=== PATIENT | female | born 1985 | race Caucasian/White ===

== ENCOUNTER 2021-07-11 14:18 | Inpatient (IN) ==
[2021-07-11] MEDS ORDERED: OXYTOCIN 30 UNITS/500 ML BAG IV PRN (14:23)
[2021-07-11] MEDS ORDERED: LACTATED RINGER'S 1,000 ML IV PRN (14:23)
[2021-07-11 14:41] LABS: Hematocrit (blood only) 30.2 % (37-47); Hemoglobin 9.6 g/dL (12.0-16.0); Mean Corpuscular Hemoglobin 28.6 pg (25-34); Mean Corpuscular Hgb Conc 31.8 g/dL (32-36); Mean Corpuscular Volume 89.9 fL (80-100); Mean Platelet Volume 13.4 fL (7.4-10.4); Nucleated RBC # (auto) 0.04 K/uL (0-0); Nucleated RBC % (auto) 0.4 %; Platelet Count 215 K/uL (130-400); RDW Coefficient of Variation 14.4 % (11.5-14.5); RDW Standard Deviation 47.3 fL (36.4-46.3); Red Blood Count 3.36 M/uL (4.2-5.4); White Blood Count 10.05 K/uL (4.8-10.8)
[2021-07-11] MEDS ORDERED: LABETALOL HCL IV 5 MG/ML 20ML IV STA ×3 (14:55→15:44)
[2021-07-11 14:59] LABS: Alanine Aminotransferase 22 (12-78); Albumin Globulin Ratio 0.6 (0.9-2); Albumin Level 2.8 gm/dl (3.4-5.0); Aspartate Aminotransferase 20 U/L (15-37); BUN Creatinine Ratio 18.2 (10-20); Bilirubin,Total 0.3 mg/dl (0.2-1); Blood Urea Nitrogen 9 mg/dl (7-18); Carbon Dioxide 21 mmol/L (21-32); Chloride 105 mmol/L (98-107); Est GFR (African American) 145.4 ml/min; Est GFR (Non-African American) 125.5 ml/min; Globulin 4.6 gm/dl (2.5-4.0); Glucose 83 mg/dl (70-99); Potassium 3.2 mmol/L (3.5-5.1); Sodium 135 mmol/L (136-145); Total Protein 7.4 gm/dl (6.4-8.2)
[2021-07-11 15:00] LABS: Alkaline Phosphatase 181 U/L (45-117)
[2021-07-11] MEDS ORDERED: MAG SULFATE 4GM BOLUS FROM BAG IV ONE (15:03)
--- NOTE | 2021-07-11 15:09 | History & Physical Report ---
Date of Service July 11, 2021 Assessment & Plan (1) Preeclampsia: (2) Gestational diabetes: (3) Previous delivery affecting , antepartum: Plan: Patient demonstrating severe level blood pressures at this point. Has had two doses of steroids. fetus category one. Plan to proceed with delivery. Treat blood pressures with labetalol and start mag for seizure prophylaxis. Explained the situation to the patient and she expresses understanding. Will proceed. She desires a tubal ligation and had this planned with her repeat c/s. Labs continue to be normal but with these pressures the risk of remaining are outweighed by the risks of prematurity. The patient expresses understanding. Admission and Anticipated Discharge Date Admission Date: July 11, 2021 History of Present Illness Chief Complaint: elevated blood pressures Primary Care Provider: Dana Lomax Patient is a 36yof , c/s x2, who presents to labor and delivery from the office for elevated blood pressures. Has been in the office and labor and delivery every day this week because of elevated blood pressures. She was in the office again today and bps 150s/100s. I first saw the patient on Sat wtih elevated pressures and morrow. Bps were elevated but not in the severe range. Labs have always been normal. She has been seen almost daily and pressures, which she notes are 160s/100s at home have always not been severe here. She has gotten two doses of steroids. Had a 24 hour urine less than 300 when had p/cr of 0.3 on Sat. She had a new +2 dip in the office today. She notes continued morrow that has never gone away. At times spikes a bit worse. Notes blurry vision since sat. Currently denies ruq pain, n/v, increased swelling. Her pressures here are significantly elevated up to 200s/100s. She dipped neg here. and Delivery Plans Covid Vaccine #1 10/26/20 (Moderna) Covid Vaccine #2 12/01/20 Prior Section affecting X2 - Repeat at 39 weeks C/S WITH ANAYA ON 08/02/21 COVID TEST ON 07/31/21 GDM w glucola *Begin monthly AC Us's @24wks Flu shot given 04/18/21 SB OB Labs: Blood Type O Positive 12/21/20 Antibody Screen NEGATIVE 12/21/20 Hemoglobin 9.4 g/dL (12.0-16.0) L 07/07/21 Hematocrit 29.4 % (37-47) L 07/07/21 Mean Corpuscular Volume 89.1 fL (80-100) 07/07/21 Platelet Count 208 K/uL (130-400) 07/07/21 Rubella IgG Antibody Immune (Immune) 12/21/20 A Rapid Plasma Reagin Nonreactive (Nonreactive) 12/21/20 Hepatitis B Surface Antigen Neg (Neg) 12/21/20 HIV (1&2) Ab and P24 Ag, 4th Gener Neg (Neg) 12/21/20 Glucose 1 Hour 50 gm Load 190 mg/dl (70-130) H 03/08/21 Maternal Serum Alpha Fetoprotein 28.3 ng/mL 03/08/21 OB Optional Labs: Chlamydia trachomatis RNA NOT DETECTED (NOT DETECTED) 12/21/20 Neisseria gonorrhoeae RNA NOT DETECTED (NOT DETECTED) 12/21/20 Alpha Fetoprotein Triple Screen SEE NOTE 03/08/21 Labs Reviewed: cf/sma neg low risk panorama Allergies Allergy/AdvReac Type Severity Reaction Status Date / Time No Known Allergies Allergy Verified 07/11/21 13:52 Home Medications Medication Instructions Recorded Confirmed Type prenat.vits,inez,vod-jnxn-cfnof 1 tab PO DAILY 12/13/20 07/11/21 History acetone (urine) test (Ketone Urine #50 ea 05/09/21 07/11/21 Rx Test) blood sugar diagnostic (OneTouch #150 ea 05/09/21 07/11/21 Rx Verio test strips) blood-glucose meter (OneTouch #1 ea 05/09/21 07/11/21 Rx Verio Flex meter) lancets 33 gauge (OneTouch Delica #150 ea 05/09/21 07/11/21 Rx Plus Lancet) Patient History Surgical History Hx of section Family History (Updated 07/11/21 @ 14:51 by Vesna Del Cid RN) Father Stroke Mother Diabetes Stroke Sister Diabetes Heart disease Social History Smoking Status: Never smoker Hx Alcohol Use: No Hx Substance Use: No Preferred Language: Thai Communication Ability: Effective Photo Checker And Assembler Required: No Beliefs That Will Affect Care: None marital status: marital status details: Massimo (35) [phone] Current Living Situation: Family Current Living Situation Comment: and 2 children current occupational status: employed current occupation: quality assurance advisor Other Information That Helps Us Care for You: No Feels Safe at Home: Yes Assistive Devices: None OB History Del. Date GA wks Lbr Lgth wt Sex Type del Anes Place Del Prov ? Comment 12/10/10 39 6lb F Epid ural Other [place] No GHTN, oligo 08/06/17 42 8lbs F Spi nal [facility] No COPY CHASER History noncontributory Physical Exam Constitutional: WD/WN, vitals as above Gastrointestinal (Abdomen): soft, gravid, nt no ruq pain Neurologic: patellar DTR's 2+ bilat, sensation intact (no clonus) Psychiatric: A+Ox3, euthymic affect Genitourinary: cx--deferred toco--irregular contractions efm--140s with mod variability, accels to 160s, no decels Results & Data ([place]) Vital Signs (Past 12 Hours) Vital Signs Pulse BP 07/11/21 15:03 84 200/106 H 07/11/21 15:01 84 215/122 H 07/11/21 14:54 68 198/105 H 07/11/21 14:43 66 193/95 H 07/11/21 14:31 74 169/93 H Coding Level of Care Code None Diagnoses Preeclampsia O14.90 Gestational diabetes O24.419 Previous delivery affecting , antepartum O34.219
[2021-07-11] MEDS ORDERED: MAGNESIUM SULFATE 40GM / WTR 1,000 ML BAG IV ONE (15:10)
[2021-07-11] MEDS ORDERED: PATIENT'S HEIGHT AND/OR WEIGHT NEEDED SCH (15:15)
[2021-07-11 15:21] LABS: Creatinine Urine Random 37.6 mg/dl; Protein Creatinine Ratio Urine 0.3 (0-0.2); Total Protein Urine Random 12.7 mg/dl (0-11.9)
[2021-07-11] MEDS ORDERED: LACTATED RINGER'S 1,000 ML IV SCH ×2 (15:30→17:45)
[2021-07-11] MEDS ORDERED: CITRIC ACID/SODIUM CITRATE 15 ML UDC ONE (15:32)
[2021-07-11] MEDS ORDERED: MoRPHine SULFATE PF 1 MG/ML 10 ML AMP/VIAL ONE (16:02)
--- NOTE | 2021-07-11 16:05 | Anesthesiology Consultation ---
Date of Service July 11, 2021 Assessment & Plan Chart Review Chart Review: Acceptable Risk for Surgery Consults Requested none History Surgery Operation Date: 07/11/21 15:30 Proposed Procedures p Section in LD - Vesna Rubio MD, FACOG Height/Weight Height: 5 ft 7 in Weight: 96.162 kg Allergies Allergy/AdvReac Type Severity Reaction Status Date / Time No Known Allergies Allergy Verified 07/11/21 13:52 Medications Home Medications Medication Instructions Recorded Confirmed Last Taken prenat.vits,inez,tcb-kgwo-jzixb 1 tab PO DAILY 12/13/20 07/11/21 Unknown acetone (urine) test (Ketone Urine #50 ea 05/09/21 07/11/21 Unknown Test) blood sugar diagnostic (OneTouch #150 ea 05/09/21 07/11/21 Unknown Verio test strips) blood-glucose meter (OneTouch #1 ea 05/09/21 07/11/21 Unknown Verio Flex meter) lancets 33 gauge (OneTouch Delica #150 ea 05/09/21 07/11/21 Unknown Plus Lancet) Past Family History Family History (Updated 07/11/21 @ 14:51 by Vesna Del Cid RN) Father Stroke Mother Diabetes Stroke Sister Diabetes Heart disease Past Surgical History Surgical History Hx of section Social History Smoking Status: Never smoker Do You Dip or Chew Tobacco: No Hx Alcohol Use: No Hx Substance Use: No substance use type: does not use Physical Exam Vital Signs Last Vital Signs Temp 36.6 C 07/11/21 14:43 Pulse 75 07/11/21 16:02 Resp 18 07/11/21 14:43 BP 167/82 H 07/11/21 16:02 Testing Laboratory Results 07/11/21 14:34 07/11/21 14:34 Blood Type O Positive 07/11/21 14:34 Antibody Screen NEGATIVE 07/11/21 14:34
[2021-07-11] MEDS ORDERED: PHENYLEPHRINE 100MCG/ML 5ML SYR ONE (16:58)
[2021-07-11] MEDS ORDERED: OXYTOCIN 10 UNITS/ML 10ML VIAL ONE (16:58)
--- NOTE | 2021-07-11 17:27 | Operative Report ---
PG Post Operative Report Pre & Post Diagnosis Operation Date: 07/11/21 15:30 Pre-Op Diagnosis: 36 1/7 Weeks Gestation Previous Sections x 3 Preeclampsia with Severe Features Desires Repeat Section and Sterilization Post-Op Diagnosis: 36 1/7 Weeks Gestation Previous Sections x 3 Preeclampsia with Severe Features Desires Repeat Section and Sterilization I identified the patient and participated in the time-out.: Yes Procedure Operation Date: 07/11/21 15:30 Actual Procedures p Repeat lower transverse Section , modified bilateral pomery tubal ligation in LD; Live Male Infant at 1652(Bilateral) - Vesna Rubio MD, FACOG Surgeon Vesna Rubio MD, FACOG Supervisor [employer] [facility] Estimated Blood Loss 600 Findings Consistent with Post-Op Diagnosis viable male infant in cephalic presentation, nl utx/tubes, ovs bilaterally Fluids ivf--1100cc, uop--650 Specimens bilateral tubal segments Drains baptiste Anesthesia Type Spinal Complications none Disposition Accompanied Patient To Recovery: Yes Disposition: L&D Indications 36yo with iup at 36 1/7 weeks with pet with severe features, previous c/s x 2 and desires sterilization Description of Procedure The patient was taken to the operating room where she was identified verbally and by bracelet. She was seated on the operating table where a spinal anesthetic was placed by anesthesia. She was then placed in the supine position with a leftward tilt. A Baptiste catheter was placed sterilely. the patient was prepped and draped in a normal standard fashion. the anesthetic was tested and found to be adequate. A time-out was held, identifying correct patient, procedure, positioning and preoperative antibiotics. There were no concerns. A Pfannenstiel skin incision was made with a knife and taken down to the underlying layer of fascia with the knife and Bovie electrocautery. Bleeding was attended to with the Bovie. The fascia was incised in the midline with the knife and taken out laterally with scissors. The superior edge of the fascial incision was grasped, elevated and the underlying layer of rectus muscle was taken off bluntly and with scissors. In a similar fashion, the inferior edge of the fascial incision was grasped, elevated and the underlying layer of rectus muscle was taken off bluntly and with scissors. The muscles were jose ntly in the midline. The peritoneum was entered by grasping with snaps and entering with a knife. There were omental adhesions to the peritoneum that were taken down with cautery. The incision was then stretched. The bladder blade was placed. The vesicouterine peritoneum was identified, entered with scissors and taken out laterally with scissors. The bladder flap was created digitally A hysterotomy incision was scored with a knife and the incision was stretched superiorly and inferiorly with the combine operator's fingers. The operators hand was placed into the incision and the head was delivered atraumatically. No nuchal cord. The nose and mouth were bulb suctioned. the rest of the was then delivered without difficulty. The nose and mouth were again bulb suctioned. The cord was clamped and cut and the infant was then handed off to the awaiting banquet set up person for drying and attention. Cord blood and segment were obtained. The placenta was Manually extracted. The uterus was exteriorized and cleared of all clot and debris with moistened laparotomy sponges. The hysterotomy incision was repaired in one layer, a running locked layer. Several figure of eight sutures of 0 vicryl needed for hemostasis. Hemostasis was noted to be good. Posterior cul-de-sac was irrigated and cleared of all clot and debris. The hysterotomy incision was again inspected and found to be hemostatic. A bilateral tubal ligation was then performed. First the right and then the left tube was grasped with a Mcdaniels and sutured x 2 with 2-0 plain gut suture. The tubal segment was removed with scissors. the edges were cauteriaed and hemostatic. The uterus was reinteriorized. Hysterotomy incision was again inspected and found to be hemostatic. Rectus muscles were reapproximated with several interrupted stitches of 0 Vicryl. The fascia was then reapproximated with 0 Vicryl starting at the edges and meeting in the midline. The subcuticular tissues were copiously irrigated and bleeding was attended to with cautery. The skin was then closed with 4-0 Vicryl in a subcuticular fashion. All sponge, lap and needle counts were correct x 2. The patient was taken to the recovery room in stable condition. I attest to the content of the Intraoperative Record and any orders documented therein. Any exceptions are noted below. OB Procedure Charges 74095 [id number] Add on Tubal for C/S
[2021-07-11] MEDS ORDERED: PROMETHAZINE HCL 25 MG in SODIUM CHLORIDE 0.9% 50 ML IV PRN (17:41)
[2021-07-11] MEDS ORDERED: MAGNESIUM HYDROXIDE SUSP 30 ML UDC PO PRN (17:41)
[2021-07-11] MEDS ORDERED: SENNA 8.6 MG TAB PO PRN (17:41)
[2021-07-11] MEDS ORDERED: BENZOCAINE 20% AER SPR 82.5 GM CAN EXT PRN (17:41)
[2021-07-11] MEDS ORDERED: SUPERCREAM 0.870% 15 GM JAR EXT PRN (17:41)
[2021-07-11] MEDS ORDERED: DIPHTHERIA/TETANUS/PERTUSSIS 0.5 ML SYR/VIAL IM ONE (17:41)
[2021-07-11] MEDS ORDERED: ONDANSETRON INJ 2 MG/ML 2 ML VIAL IV PRN (17:41)
[2021-07-11] MEDS ORDERED: HYDROCORTISONE ACETATE 25 MG SUPP PR PRN (17:41)
[2021-07-11 17:49] LABS: Base Excess Cord Arterial Bld 0.2 mEq/L (-9-1.8); CO2 Cord Arterial Blood 63 mmHg (39.1-73.5); HCO3 Cord Arterial Blood 29 mmol/L (19.7-28.5); Oxygen Sat Cord Arterial Blood < 60.0 % (<60); PO2 Cord Arterial Blood 20 mmHg (4.1-31.7); pH Cord Arterial Blood 7.28 (7.1-7.38)
[2021-07-11 17:55] LABS: Base Excess Cord Venous Blood -0.2 mEq/L (-7.7-1.9); Cord Venous Blood HCO3 26 mmol/L (18.4-26.8); Cord Venous Blood PCO2 48 mmHg (30.4-57.2); Cord Venous Blood PO2 28 mmHg (14.1-43.3); Cord Venous Blood pH 7.35 (7.20-7.44)
--- NOTE | 2021-07-11 18:35 | Anesthesiology Progress Note ---
Date of Service July 11, 2021 Anesthesia Post Procedure Vital Signs Vital Signs: Temp Pulse Resp BP Pulse Ox 07/11/21 18:34 81 143/81 H 07/11/21 18:29 81 97 07/11/21 18:24 79 151/79 H 95 07/11/21 18:20 20 07/11/21 18:19 76 94 07/11/21 18:15 76 151/70 H 07/11/21 18:14 78 94 07/11/21 18:10 20 07/11/21 18:09 76 96 07/11/21 18:04 71 141/74 H 95 07/11/21 18:00 20 07/11/21 17:59 79 95 07/11/21 17:58 84 93 07/11/21 17:54 71 130/64 98 07/11/21 17:50 20 07/11/21 17:49 82 98 07/11/21 17:44 68 133/67 97 07/11/21 17:40 36.6 C 20 07/11/21 17:39 71 98 07/11/21 17:34 72 136/70 98 07/11/21 16:13 79 182/90 H 07/11/21 16:02 75 167/82 H 07/11/21 15:52 78 156/79 H 07/11/21 15:43 77 183/88 H 07/11/21 15:32 80 175/91 H 07/11/21 15:22 80 171/93 H 07/11/21 15:14 69 191/94 H 07/11/21 15:03 84 200/106 H 07/11/21 15:01 84 215/122 H 07/11/21 14:54 68 20 198/105 H 07/11/21 14:43 36.6 C 66 18 193/95 H 07/11/21 14:31 74 169/93 H Pain Intensity Head: Pain Intensity: 4 Transfer of Care Handoff Completed per policy Notes Mental Status: alert / awake / arousable and participated in evaluation Patient Amnestic to Procedure: Yes Nausea / Vomiting: adequately controlled Pain: adequately controlled Airway Patency, RR, SpO2: stable & adequate BP & HR: stable & adequate Hydration State: stable & adequate Neuraxial Anesthesia: was administered and sensory block is resolving Anesthetic Complications: no major complications apparent
[2021-07-11] MEDS: MAGNESIUM SULFATE / WTR 40 GM/1,000 ML BAG IV SCH (19:00)
[2021-07-11] MEDS: OXYTOCIN 20 UNITS in LACTATED RINGER'S 1,000 ML IV SCH (19:55)
--- NOTE | 2021-07-11 21:07 | Obstetrical Progress Note ---
Date of Service July 11, 2021 Assessment & Plan (1) Preeclampsia: Continue mag. Check level. Overall doing better. Will continue to monitor closely. Likely 24 hours of mag. Subjective Patient lying in bed. She notes she was recently very hot and dizzy associated with nausea. Received some zofran and feeling better. Notes no pain. Bllood pressures much improved since delivery 140-150s/60-80. UOP has been fair but adequate. she continues on Mag. Physical Exam Constitutional WD/WN, vitals as above Psychiatric A+Ox3, euthymic affect Results & Data ([facility]) Vital Signs (Past 12 Hours) Vital Signs Temp Pulse Resp BP Pulse Ox 07/11/21 20:59 108 H 98 07/11/21 20:54 77 96 07/11/21 20:49 74 94 07/11/21 20:44 74 94 07/11/21 20:39 78 97 07/11/21 20:34 71 93 07/11/21 20:30 18 07/11/21 20:29 71 96 07/11/21 20:24 73 96 07/11/21 20:19 80 94 07/11/21 20:14 73 98 07/11/21 20:09 78 96 07/11/21 20:04 82 147/68 H 95 07/11/21 19:59 73 97 07/11/21 19:54 73 147/70 H 93 07/11/21 19:52 76 88 L 07/11/21 19:49 79 88 L 07/11/21 19:46 82 88 L 07/11/21 19:44 77 140/67 96 07/11/21 19:40 18 07/11/21 19:39 83 96 07/11/21 19:34 84 141/76 H 94 07/11/21 19:29 77 93 07/11/21 19:24 80 153/86 H 94 07/11/21 19:19 81 153/88 H 95 07/11/21 19:14 77 152/80 H 95 07/11/21 19:10 37.2 C 18 07/11/21 19:09 81 94 07/11/21 19:04 84 150/86 H 95 07/11/21 18:59 80 94 07/11/21 18:54 85 149/85 H 92 07/11/21 18:49 78 94 07/11/21 18:44 76 149/92 H 94 07/11/21 18:40 20 07/11/21 18:39 77 95 07/11/21 18:34 80 143/81 H 94 07/11/21 18:30 20 07/11/21 18:29 81 97 07/11/21 18:24 79 151/79 H 95 07/11/21 18:20 20 07/11/21 18:19 76 94 07/11/21 18:15 76 151/70 H 07/11/21 18:14 78 94 07/11/21 18:10 20 07/11/21 18:09 76 96 07/11/21 18:04 71 141/74 H 95 07/11/21 18:00 20 07/11/21 17:59 79 95 07/11/21 17:58 84 93 07/11/21 17:54 71 130/64 98 07/11/21 17:50 20 07/11/21 17:49 82 98 07/11/21 17:44 68 133/67 97 07/11/21 17:40 36.6 C 20 07/11/21 17:39 71 98 07/11/21 17:34 72 136/70 98 07/11/21 16:13 79 182/90 H 07/11/21 16:02 75 167/82 H 07/11/21 15:52 78 156/79 H 07/11/21 15:43 77 183/88 H 07/11/21 15:32 80 175/91 H 07/11/21 15:22 80 171/93 H 07/11/21 15:14 69 191/94 H 07/11/21 15:03 84 200/106 H 07/11/21 15:01 84 215/122 H 07/11/21 14:54 68 20 198/105 H 07/11/21 14:43 36.6 C 66 18 193/95 H 07/11/21 14:31 74 169/93 H
--- NOTE | 2021-07-11 21:10 | Communication Note ---
Date of Service: July 11, 2021 Of note-- When the nurses were placing the baptiste catheter in the or after she had her spinal placed, they noted a vulvar mass. There is a cystic mass of the perineum that is 3-4 cm in height and 2cm in width, soft and mobile noted. No erythema or induration noted. When asked, Radha notes she had a small cyst there in the past but notes that it may have gotten bigger over the last 2-3 days. She notes it was not painful. Plan to monitor and address in the period. Does not appear to be a hematoma or an abscess.
[2021-07-11] MEDS: DOCUSATE SODIUM 100 MG CAP PO SCH (21:42)
[2021-07-11] MEDS: SIMETHICONE 80 MG CHEW PO SCH (21:43)
[2021-07-11] MEDS: LABETALOL HCL 100 MG TAB PO SCH (23:46)
[2021-07-12] MEDS ORDERED: CITRIC ACID/SODIUM CITRATE 15 ML UDC PO SCH (06:00)
--- NOTE | 2021-07-12 06:37 | Obstetrical Progress Note ---
Date of Service July 12, 2021 Assessment & Plan (1) Preeclampsia: (2) S/P section: Continue mag for 24 hours. Patient status is stable without concern for worsening disease at this time. Bps are trending down. ON labetalol 100mg bid at this time. Subjective Ambulation: limited ambulation Voiding: baptiste catheter in place Passing Gas:: No Diet Tolerance:: clear liquids Lochia:: Small Patient resting in bed. Notes she is very sleepy. Has had 1000+ of uop in the last shift. Bps were trending up last night so started labetalol and now note pressures in normal range. Were 150-160s/80-90. Notes her morrow is a 4/10. Physical Exam Constitutional WD/WN, vitals as above Cardiovascular Extremities: no calf tenderness and no edema Gastrointestinal (Abdomen) soft, nt, dressing dry, ff/nt at u Neurologic patellar DTR's 2+ bilat, sensation intact (no clonus) Results & Data ([facility]) Vital Signs (Past 12 Hours) Vital Signs Temp Pulse Resp BP Pulse Ox 07/12/21 06:29 81 93 07/12/21 06:24 79 123/68 93 07/12/21 06:19 84 93 07/12/21 06:14 83 93 07/12/21 06:09 81 93 07/12/21 06:04 81 93 07/12/21 05:59 81 92 07/12/21 05:54 78 94 07/12/21 05:49 83 93 07/12/21 05:44 79 94 07/12/21 05:40 18 07/12/21 05:39 86 92 07/12/21 05:34 82 94 07/12/21 05:29 79 93 07/12/21 05:24 90 123/70 95 07/12/21 05:19 79 93 07/12/21 05:14 79 94 07/12/21 05:09 82 95 07/12/21 05:04 81 94 07/12/21 04:59 89 96 07/12/21 04:54 86 96 07/12/21 04:49 81 95 07/12/21 04:44 82 94 07/12/21 04:42 18 07/12/21 04:39 82 95 07/12/21 04:34 78 94 07/12/21 04:29 86 93 07/12/21 04:24 94 H 140/80 95 07/12/21 04:19 90 95 07/12/21 04:14 93 H 96 07/12/21 04:09 92 H 96 07/12/21 04:04 94 H 96 07/12/21 03:59 87 95 07/12/21 03:54 83 94 07/12/21 03:49 84 96 07/12/21 03:44 87 95 07/12/21 03:39 88 95 07/12/21 03:36 18 07/12/21 03:35 18 07/12/21 03:34 84 95 07/12/21 03:29 88 94 07/12/21 03:24 83 136/70 95 07/12/21 03:19 85 95 07/12/21 03:14 87 94 07/12/21 03:09 84 95 07/12/21 03:04 85 96 07/12/21 02:59 94 H 96 07/12/21 02:55 36.6 C 07/12/21 02:54 88 94 07/12/21 02:49 89 95 07/12/21 02:44 87 95 07/12/21 02:42 18 07/12/21 02:39 84 97 07/12/21 02:34 71 95 07/12/21 02:29 72 95 07/12/21 02:24 72 150/78 H 95 07/12/21 02:19 73 95 07/12/21 02:14 79 94 07/12/21 02:09 74 96 07/12/21 02:04 77 95 07/12/21 01:59 72 95 07/12/21 01:54 72 96 07/12/21 01:49 72 94 07/12/21 01:44 72 95 07/12/21 01:39 74 95 07/12/21 01:34 78 95 07/12/21 01:30 18 07/12/21 01:29 74 94 07/12/21 01:24 74 135/74 93 07/12/21 01:19 75 94 07/12/21 01:14 73 94 07/12/21 01:09 74 93 07/12/21 01:04 74 93 07/12/21 00:59 75 94 07/12/21 00:54 75 93 07/12/21 00:49 75 93 07/12/21 00:44 73 93 07/12/21 00:39 78 92 07/12/21 00:34 75 94 07/12/21 00:30 16 07/12/21 00:29 74 94 07/12/21 00:24 73 146/75 H 94 07/12/21 00:19 72 96 07/12/21 00:14 69 96 07/12/21 00:09 67 97 07/12/21 00:04 69 95 07/11/21 23:59 71 96 07/11/21 23:54 69 95 07/11/21 23:49 66 95 07/11/21 23:44 69 95 07/11/21 23:39 69 96 07/11/21 23:34 68 96 07/11/21 23:33 68 166/91 H 07/11/21 23:30 63 18 163/86 H 07/11/21 23:29 65 95 07/11/21 23:24 67 167/78 H 96 07/11/21 23:19 69 96 07/11/21 23:14 70 95 07/11/21 23:09 66 97 07/11/21 23:04 69 94 07/11/21 22:59 69 95 07/11/21 22:54 66 96 07/11/21 22:49 67 97 07/11/21 22:44 75 97 07/11/21 22:39 73 97 07/11/21 22:34 70 97 07/11/21 22:30 37.0 C 07/11/21 22:29 70 98 07/11/21 22:24 66 153/75 H 95 07/11/21 22:19 70 96 07/11/21 22:14 63 97 07/11/21 22:09 74 96 07/11/21 22:04 72 95 07/11/21 21:59 70 95 07/11/21 21:54 71 95 07/11/21 21:49 71 95 07/11/21 21:44 76 95 07/11/21 21:39 71 95 07/11/21 21:34 75 94 07/11/21 21:30 18 07/11/21 21:29 77 96 07/11/21 21:24 78 148/73 H 97 07/11/21 21:19 74 93 07/11/21 21:14 78 94 07/11/21 21:09 72 95 07/11/21 21:06 82 90 07/11/21 21:04 79 93 07/11/21 21:00 18 07/11/21 20:59 108 H 98 07/11/21 20:54 77 96 07/11/21 20:49 74 94 07/11/21 20:44 74 94 07/11/21 20:39 78 97 07/11/21 20:34 71 93 07/11/21 20:30 18 07/11/21 20:29 71 96 07/11/21 20:24 73 96 07/11/21 20:19 80 94 07/11/21 20:14 73 98 07/11/21 20:09 78 96 07/11/21 20:04 82 147/68 H 95 07/11/21 19:59 73 97 07/11/21 19:54 73 147/70 H 93 07/11/21 19:52 76 88 L 07/11/21 19:49 79 88 L 07/11/21 19:46 82 88 L 07/11/21 19:44 77 140/67 96 07/11/21 19:40 18 07/11/21 19:39 83 96 07/11/21 19:34 84 141/76 H 94 07/11/21 19:29 77 93 07/11/21 19:24 80 153/86 H 94 07/11/21 19:19 81 153/88 H 95 07/11/21 19:14 77 152/80 H 95 07/11/21 19:10 37.2 C 18 07/11/21 19:09 81 94 07/11/21 19:04 84 150/86 H 95 07/11/21 18:59 80 94 07/11/21 18:54 85 149/85 H 92 07/11/21 18:49 78 94 07/11/21 18:44 76 149/92 H 94 07/11/21 18:40 20 07/11/21 18:39 77 95 07/11/21 18:34 80 143/81 H 94
[2021-07-12 06:59] LABS: Basophils # (auto) 0.01 K/uL (0-0.2); Basophils % (auto) 0.1 %; Eosinophils # (auto) 0.02 K/uL (0-0.5); Eosinophils % (auto) 0.2 %; Hematocrit (blood only) 27.2 % (37-47); Hemoglobin 8.5 g/dL (12.0-16.0); Immature Granulocytes # (auto) 0.02 K/uL (0.00-0.02); Immature Granulocytes % (auto) 0.2 %; Lymphocytes # (auto) 1.58 K/uL (1.2-3.4); Lymphocytes % (auto) 17.3 %; Mean Corpuscular Hemoglobin 28.2 pg (25-34); Mean Corpuscular Hgb Conc 31.3 g/dL (32-36); Mean Corpuscular Volume 90.4 fL (80-100); Mean Platelet Volume 12.9 fL (7.4-10.4); Monocytes # (auto) 0.68 K/uL (0.11-0.59); Monocytes % (auto) 7.5 %; Neutrophils # (auto) 6.81 K/uL (1.4-6.5); Neutrophils % (auto) 74.7 %; Platelet Count 180 K/uL (130-400); RDW Coefficient of Variation 14.8 % (11.5-14.5); RDW Standard Deviation 48.6 fL (36.4-46.3); Red Blood Count 3.01 M/uL (4.2-5.4); White Blood Count 9.12 K/uL (4.8-10.8)
--- NOTE | 2021-07-12 07:05 | Obstetrical Progress Note ---
Date of Service <Alee Regan MD - Last Filed: 07/12/21 07:05> July 12, 2021 Assessment & Plan <Alee Regan MD - Last Filed: 07/12/21 07:05> (1) Encounter for care and examination after delivery: POD 1: stable, postoperative management of preeclampsia * patient voiding into Borrero * pain controlled on analgesia * LR, IV Mg * breast and bottle feeding * reassess d/c readiness tomorrow <Vesna Rubio MD, FACOG - Last Filed: 07/12/21 07:08> (1) Encounter for care and examination after delivery: Subjective <Alee Regan MD - Last Filed: 07/12/21 07:05> Post Radha is a 36 y/o female who is POD 1 following for preeclampsia at 36.1 WGA. She reports feeling well overall this morning. 4/10 pain well managed on analgesics. Voiding into Borrero catheter. Has minimal lochia overnight and this morning. Currently breast and bottle feeding. Review of Systems Denies fever, chills, sweats Denies shortness of breath, difficulty breathing, chest pain, palpitations, chest pressure. Denies breast pain. Denies dysuria. Reports headache but no changes in vision. Physical Exam <Alee Regan MD - Last Filed: 07/12/21 07:05> General: Alert, oriented. No acute distress. Cardiac: Regular rate and rhythm, no murmurs/rubs/gallops. Respiratory: Clear to auscultation bilaterally a/p, no wheezes/rales/rhonchi. No increased work of breathing. Symmetrical chest rise. No respiratory distress. Abdomen: Soft, nontender, nondistended. Bowel sounds present. Uterus: Uterine fundus firm, palpable above umbilicus. Surgical scar clean and healing well. Lower Extremities: No lower extremity edema or swelling. No deep calf pain. Mo's negative bilaterally. Results & Data ([facility]) <Alee Regan MD - Last Filed: 07/12/21 07:05> Vital Signs (Past 12 Hours) Vital Signs Temp Pulse Resp BP Pulse Ox 07/12/21 06:54 74 95 07/12/21 06:49 72 95 07/12/21 06:44 80 96 07/12/21 06:39 76 94 07/12/21 06:34 78 94 07/12/21 06:29 81 93 07/12/21 06:24 79 123/68 93 07/12/21 06:19 84 93 07/12/21 06:14 83 93 07/12/21 06:09 81 93 07/12/21 06:04 81 93 07/12/21 05:59 81 92 07/12/21 05:54 78 94 07/12/21 05:49 83 93 07/12/21 05:44 79 94 07/12/21 05:40 18 07/12/21 05:39 86 92 07/12/21 05:34 82 94 07/12/21 05:29 79 93 07/12/21 05:24 90 123/70 95 07/12/21 05:19 79 93 07/12/21 05:14 79 94 07/12/21 05:09 82 95 07/12/21 05:04 81 94 07/12/21 04:59 89 96 07/12/21 04:54 86 96 07/12/21 04:49 81 95 07/12/21 04:44 82 94 07/12/21 04:42 18 07/12/21 04:39 82 95 07/12/21 04:34 78 94 07/12/21 04:29 86 93 07/12/21 04:24 94 H 140/80 95 07/12/21 04:19 90 95 07/12/21 04:14 93 H 96 07/12/21 04:09 92 H 96 07/12/21 04:04 94 H 96 07/12/21 03:59 87 95 07/12/21 03:54 83 94 07/12/21 03:49 84 96 07/12/21 03:44 87 95 07/12/21 03:39 88 95 07/12/21 03:36 18 07/12/21 03:35 18 07/12/21 03:34 84 95 07/12/21 03:29 88 94 07/12/21 03:24 83 136/70 95 07/12/21 03:19 85 95 07/12/21 03:14 87 94 07/12/21 03:09 84 95 07/12/21 03:04 85 96 07/12/21 02:59 94 H 96 07/12/21 02:55 36.6 C 07/12/21 02:54 88 94 07/12/21 02:49 89 95 07/12/21 02:44 87 95 07/12/21 02:42 18 07/12/21 02:39 84 97 07/12/21 02:34 71 95 07/12/21 02:29 72 95 07/12/21 02:24 72 150/78 H 95 07/12/21 02:19 73 95 07/12/21 02:14 79 94 07/12/21 02:09 74 96 07/12/21 02:04 77 95 07/12/21 01:59 72 95 07/12/21 01:54 72 96 07/12/21 01:49 72 94 07/12/21 01:44 72 95 07/12/21 01:39 74 95 07/12/21 01:34 78 95 07/12/21 01:30 18 07/12/21 01:29 74 94 07/12/21 01:24 74 135/74 93 07/12/21 01:19 75 94 07/12/21 01:14 73 94 07/12/21 01:09 74 93 07/12/21 01:04 74 93 07/12/21 00:59 75 94 07/12/21 00:54 75 93 07/12/21 00:49 75 93 07/12/21 00:44 73 93 07/12/21 00:39 78 92 07/12/21 00:34 75 94 07/12/21 00:30 16 07/12/21 00:29 74 94 07/12/21 00:24 73 146/75 H 94 07/12/21 00:19 72 96 07/12/21 00:14 69 96 07/12/21 00:09 67 97 07/12/21 00:04 69 95 07/11/21 23:59 71 96 07/11/21 23:54 69 95 07/11/21 23:49 66 95 07/11/21 23:44 69 95 07/11/21 23:39 69 96 07/11/21 23:34 68 96 07/11/21 23:33 68 166/91 H 07/11/21 23:30 63 18 163/86 H 07/11/21 23:29 65 95 07/11/21 23:24 67 167/78 H 96 07/11/21 23:19 69 96 07/11/21 23:14 70 95 07/11/21 23:09 66 97 07/11/21 23:04 69 94 07/11/21 22:59 69 95 07/11/21 22:54 66 96 07/11/21 22:49 67 97 07/11/21 22:44 75 97 07/11/21 22:39 73 97 07/11/21 22:34 70 97 07/11/21 22:30 37.0 C 07/11/21 22:29 70 98 07/11/21 22:24 66 153/75 H 95 07/11/21 22:19 70 96 07/11/21 22:14 63 97 07/11/21 22:09 74 96 07/11/21 22:04 72 95 07/11/21 21:59 70 95 07/11/21 21:54 71 95 07/11/21 21:49 71 95 07/11/21 21:44 76 95 07/11/21 21:39 71 95 07/11/21 21:34 75 94 07/11/21 21:30 18 07/11/21 21:29 77 96 07/11/21 21:24 78 148/73 H 97 07/11/21 21:19 74 93 07/11/21 21:14 78 94 07/11/21 21:09 72 95 07/11/21 21:06 82 90 07/11/21 21:04 79 93 07/11/21 21:00 18 07/11/21 20:59 108 H 98 07/11/21 20:54 77 96 07/11/21 20:49 74 94 07/11/21 20:44 74 94 07/11/21 20:39 78 97 07/11/21 20:34 71 93 07/11/21 20:30 18 07/11/21 20:29 71 96 07/11/21 20:24 73 96 07/11/21 20:19 80 94 07/11/21 20:14 73 98 07/11/21 20:09 78 96 07/11/21 20:04 82 147/68 H 95 07/11/21 19:59 73 97 07/11/21 19:54 73 147/70 H 93 07/11/21 19:52 76 88 L 07/11/21 19:49 79 88 L 07/11/21 19:46 82 88 L 07/11/21 19:44 77 140/67 96 07/11/21 19:40 18 07/11/21 19:39 83 96 07/11/21 19:34 84 141/76 H 94 07/11/21 19:29 77 93 07/11/21 19:24 80 153/86 H 94 07/11/21 19:19 81 153/88 H 95 07/11/21 19:14 77 152/80 H 95 07/11/21 19:10 37.2 C 18 07/11/21 19:09 81 94 07/11/21 19:04 84 150/86 H 95 <Vesna Rubio MD, FACOG - Last Filed: 07/12/21 07:08> Co-Signing Physician Notes Resident Physician Supervision Note: I interviewed and examined the patient. Discussed with Dr. Salas and agree with findings and plan as documented in the note. Any exceptions or clarifications are listed here: SEe my note. [facility] Documented By: Vesna Rubio MD, FACOG Resident Activity Tracking <Alee Regan MD - Last Filed: 07/12/21 07:05> Resident Involvement: Resident Care Provided Care Provided: OB Delivery
[2021-07-12 07:50] LABS: Albumin Level 2.3 gm/dl (3.4-5.0); BUN Creatinine Ratio 13.1 (10-20); Creatinine Clr Calc Pharmacy 192.6 ml/min; Est GFR (African American) 147.3 ml/min; Est GFR (Non-African American) 127.1 ml/min; Potassium 3.3 mmol/L (3.5-5.1)
[2021-07-12 07:53] LABS: Albumin Globulin Ratio 0.6 (0.9-2); Bilirubin,Total 0.3 mg/dl (0.2-1); Total Protein 6.3 gm/dl (6.4-8.2)
[2021-07-12] MEDS: DOCUSATE SODIUM 100 MG CAP PO SCH ×2 (07:54→20:08)
[2021-07-12] MEDS: PRENATAL VITAMIN 1 TAB PO SCH (07:54)
[2021-07-12] MEDS: FERROUS SULFATE 325 MG TAB PO SCH (07:54)
[2021-07-12] MEDS: SIMETHICONE 80 MG CHEW PO SCH ×4 (07:55→20:08)
[2021-07-12] MEDS: MAGNESIUM SULFATE / WTR 40 GM/1,000 ML BAG IV SCH (07:55)
[2021-07-12] MEDS: OXYTOCIN 20 UNITS in LACTATED RINGER'S 1,000 ML IV SCH (08:49)
[2021-07-12] MEDS: LABETALOL HCL 100 MG TAB PO SCH ×2 (09:24→20:08)
[2021-07-12] MEDS ORDERED: oxyCODONE/ACETAMINOPHEN 5mg/325mg TAB PO PRN (09:30)
[2021-07-12] MEDS ORDERED: MEPERIDINE HCL 50 MG/ML CARP IV PRN (09:30)
[2021-07-12] MEDS ORDERED: diphenhydrAMINE 50 MG/ML VIAL IV PRN (09:30)
[2021-07-12] MEDS ORDERED: diphenhydrAMINE Capsule 25 MG CAP PO PRN (09:30)
[2021-07-12] MEDS: KETOROLAC 30 MG/ML VIAL IV PRN ×2 (09:44→15:54)
[2021-07-12] MEDS ORDERED: Nursing to Pharmacy Communication SCH (09:45)
[2021-07-12] MEDS ORDERED: bisacodyL 5 MG TABEC PO SCH (20:00)
[2021-07-12] MEDS: IBUPROFEN 600 MG TAB PO PRN (21:53)
[2021-07-13] MEDS ORDERED: LABETALOL HCL 100 MG TAB PO ONE ×2 (01:06→22:34)
[2021-07-13 06:55] LABS: Hematocrit (blood only) 28.5 % (37-47); Hemoglobin 8.9 g/dL (12.0-16.0)
--- NOTE | 2021-07-13 07:23 | Obstetrical Progress Note ---
Date of Service <Alee Regan MD - Last Filed: 07/13/21 07:23> July 13, 2021 Assessment & Plan <Alee Regan MD - Last Filed: 07/13/21 07:23> (1) Encounter for care and examination after delivery: POD 2: stable, postoperative management of preeclampsia * Borrero catheter discontinued; patient able to ambulate and void on her own without assistance * pain controlled on analgesia * IV magnesium discontinued yesterday after 24 hours; continue IV LR 1 L every 8 hours * P.O. labetalol increased to 200 mg twice daily (patient received additional one-time labetalol 100 mg dose overnight to increase to 200 mg; patient starting full 200 mg twice daily dose this morning) * Monitor blood pressures; consider increasing labetalol dose should pressures remain elevated * breast and bottle feeding * reassess d/c readiness tomorrow <Yumiko Abdullahi MD - Last Filed: 07/13/21 08:10> (1) Encounter for care and examination after delivery: Subjective <Alee Regan MD - Last Filed: 07/13/21 07:23> Post Radha is a 36-year-old G3, P3 who is POD 2 following for preeclampsia, GDM at 36.1 WGA. She reports feeling better this morning. Minimal pain well managed on analgesics. Tolerating meals overnight and has been able to ambulate x2 without assistance. She did note some shortness of breath with exertion during her second attempt to ambulate to the bathroom overnight. She denied dizziness, shortness of breath at rest, pain while walking or leg weakness during/since then. Has had minimal lochia this morning. Currently breast and bottle feeding. Review of Systems Denies fever, chills, sweats Some shortness of breath with exertion Denies difficulty breathing, chest pain, palpitations, chest pressure. Denies breast pain. Denies dysuria. Denies headache or changes in vision. Physical Exam <Alee Regan MD - Last Filed: 07/13/21 07:23> General: Alert, oriented. No acute distress. Cardiac: Regular rate and rhythm, no murmurs/rubs/gallops. Respiratory: Clear to auscultation bilaterally a/p, no wheezes/rales/rhonchi. No increased work of breathing. Symmetrical chest rise. No respiratory distress. Abdomen: Soft, nontender, nondistended. Bowel sounds present. Uterus: Uterine fundus firm, palpable 1 cm below the umbilicus. Surgical scar clean and healing well + serous drainage. Lower Extremities: No lower extremity edema or swelling. No deep calf pain. Mo's negative bilaterally. Results & Data ([facility]) <Alee Regan MD - Last Filed: 07/13/21 07:23> Vital Signs (Past 12 Hours) Vital Signs Temp Pulse Resp BP Pulse Ox 07/13/21 04:40 36.8 C 67 18 151/83 H 07/13/21 01:20 63 143/82 H 07/12/21 23:35 37.1 C 69 18 151/81 H 97 07/12/21 20:00 37.2 C 69 18 154/87 H 96 <Yumiko Abdullahi MD - Last Filed: 07/13/21 08:10> Co-Signing Physician Notes Resident Physician Supervision Note: I interviewed and examined the patient. Discussed with Dr. Salas and agree with findings and plan as documented in the note. Any exceptions or clarifications are listed here: [ ] Documented By: Yumiko Abdullahi MD, FACOG Resident Activity Tracking <Alee Regan MD - Last Filed: 07/13/21 07:23> Resident Involvement: Resident Care Provided Care Provided: OB Delivery
[2021-07-13] MEDS: LABETALOL HCL 200 MG TAB PO SCH ×2 (07:41→20:21)
[2021-07-13] MEDS: SIMETHICONE 80 MG CHEW PO SCH ×2 (08:18→20:16)
[2021-07-13] MEDS: FERROUS SULFATE 325 MG TAB PO SCH (08:18)
[2021-07-13] MEDS: PRENATAL VITAMIN 1 TAB PO SCH (08:18)
[2021-07-13] MEDS: DOCUSATE SODIUM 100 MG CAP PO SCH ×2 (08:18→20:16)
[2021-07-13] MEDS: IBUPROFEN 600 MG TAB PO PRN ×2 (11:25→20:17)
[2021-07-13] MEDS ORDERED: bisacodyL 10 MG SUPP PR PRN (17:41)
--- NOTE | 2021-07-13 21:14 | Obstetrical Progress Note ---
Date of Service July 13, 2021 Assessment & Plan (1) Preeclampsia: Plan: Will give additional 200mg now and recheck in 1hr. Discussed continue to monitor, may consider q8h dosing for extended coverage depending on how bp responds. Pt verbalized understanding. Admission and Anticipated Discharge Date Admission Date: July 11, 2021 Subjective Called by nursing of elevated BP just as labetalol 200mg dose was about to be given. Recheck improved but still elevated in 170s. Had endorsed HO to nursing that they thought was MSk related, given ibuprofen and now improved. Denies any other s/s pet Physical Exam Constitutional: WD/WN, vitals as above Respiratory: normal respiratory effort; no respiratory distress and no labored breathing Gastrointestinal (Abdomen): Inspection/Auscultation: abdomen normal to inspection and + abdominal surgical scar (intact) Percussion/Palpation: abdomen soft; abdomen nontender and no guarding Results & Data ([facility]) Vital Signs (Past 12 Hours) Vital Signs Temp Pulse Pulse Resp BP BP BP 07/13/21 20:55 60 177/93 H 07/13/21 20:05 98.2 F 63 18 182/83 H 184/106 H 07/13/21 16:10 98.8 F 74 16 159/88 H 07/13/21 11:35 100.0 F H 77 16 143/77 H Pulse Ox 07/13/21 20:55 07/13/21 20:05 96 07/13/21 16:10 97 07/13/21 11:35 PG Care Time/CCT Total # of Minutes Spent Total Time Spent with Patient: Total time spent is greater than 50% in coordination of care (as documented) at patient's floor/unit and/or counseling patient: Coding Level of Care Code None Diagnoses Preeclampsia O14.90
[2021-07-13] MEDS ORDERED: LABETALOL HCL 200 MG TAB PO ONE (21:15)
[2021-07-14] MEDS ORDERED: NIFEdipine EXTENDED REL 30 MG TABCR PO STA (00:01)
[2021-07-14] MEDS ORDERED: Nursing to Pharmacy Communication SCH ×2 (05:15→08:45)
--- NOTE | 2021-07-14 07:46 | Obstetrical Progress Note ---
Date of Service July 14, 2021 Assessment & Plan (1) Encounter for care and examination after delivery: (2) Preeclampsia: 36 yo POD3 from rLTCS/BTL -Meeting all pp milestones -O+/rubella immune/ -PET w/ SF - s/p pp mag, BPs became elevated last evening and so labetalol dosing was increased to 400mg BID and nifedipine 30 XR added as it did not seem like the additional labetalol helped. However after nifedipine did not change BP, manual BP was obtained by nursing and was actually much more appropriate in 140s. Repeat manually was again similar in low 150s so it seems like automatic machine is not reading accurately. Will continue to monitor throughout the day, discussed depending on how it goes may allow d/c later this evening but may need to stay overnight again and pt verbalized understanding Subjective Ambulation: ambulating normally Voiding: no voiding problems Passing Gas:: Yes Diet Tolerance:: regular diet Lochia:: Small Feeding Type:: breast feeding Pain well managed with medication. Overnight, BPs became severely elevated and so labetalol dose increased to 400mg BID and nifedipine 30 XL added. Upon recheck, BPs were still elevated and so requested RN to obtain BP manually, she did this twice and BPs were both mild range. This was again checked a few hours later manually and mild range. Review of Systems Denies fevers, chills, n/v, HO, CP, SOB Physical Exam Constitutional WD/WN, vitals as above no acute distress Respiratory normal respiratory effort, lungs clear to auscultation Cardiovascular RRR, no murmur, no edema Gastrointestinal (Abdomen) Inspection/Auscultation: abdomen normal to inspection and + abdominal surgical scar (healing well, steri strips in place) Percussion/Palpation: abdomen soft; abdomen nontender fundus firm at umbilicus and NT Musculoskeletal BLE symmetric, nonerythematous, nontender Results & Data ([facility]) Vital Signs (Past 12 Hours) Vital Signs Temp Pulse Resp BP BP Pulse Ox 07/14/21 04:30 99.1 F 72 18 150/84 H 93 07/14/21 02:41 150/84 H 07/14/21 02:40 142/84 H 07/14/21 02:30 71 176/93 H 07/14/21 01:30 71 167/91 H 07/13/21 23:30 98.2 F 64 18 177/94 H 94 07/13/21 22:30 81 161/91 H 07/13/21 22:00 63 164/83 H 07/13/21 20:55 60 177/93 H 07/13/21 20:05 98.2 F 63 18 182/83 H 184/106 H 96
[2021-07-14] MEDS: LABETALOL HCL 200 MG TAB PO SCH ×2 (07:48→19:03)
[2021-07-14] MEDS: PRENATAL VITAMIN 1 TAB PO SCH (08:00)
[2021-07-14] MEDS: SIMETHICONE 80 MG CHEW PO SCH ×6 (08:00→19:04)
[2021-07-14] MEDS: FERROUS SULFATE 325 MG TAB PO SCH (08:00)
[2021-07-14] MEDS: DOCUSATE SODIUM 100 MG CAP PO SCH (08:00)
[2021-07-14] MEDS: ACETAMINOPHEN 500 MG TAB PO PRN ×2 (08:48→15:08)
[2021-07-14] MEDS ORDERED: LABETALOL HCL 200 MG TAB PO SCH (09:00)
[2021-07-14] MEDS: IBUPROFEN 600 MG TAB PO PRN (16:20)
--- NOTE | 2021-07-14 20:19 | Obstetrical Progress Note ---
Date of Service July 14, 2021 Assessment & Plan (1) S/P section: (2) Preeclampsia: (3) Gestational diabetes: Plan: BPs have remained appropriately mild range since very early this morning and throughout the day, pt feels very well. I think ok for pt to d/c home as her is physician and is comfortable doing her BP checks. They are also going to the peds appointment tomorrow so can come for a check if they find BP to be elevated in the AM. She will continue labetalol 400mg PO BID, as well as nifedipine 30 XR daily. A message has been sent for BP check by the end of the week, but she and are aware to call with PET symptoms if they arise before then. Ample time given for questions, answered to apparent satisfaction Admission and Anticipated Discharge Date Admission Date: July 11, 2021 Subjective Pt re-evaluated. Continuing to deny s/s PET. BPs have been mild range this afternoon with manual BP checks as wall machine was found to be inaccurate last night. Has been maintained on labetalol 400mg PO BID, nifedipine 30 XL daily. She and her who is a hospitalist strongly desire to go home. Physical Exam Constitutional: WD/WN, vitals as above no acute distress Respiratory: normal respiratory effort; no respiratory distress and no labored breathing Results & Data ([facility]) Vital Signs (Past 12 Hours) Vital Signs Temp Pulse Resp BP BP Pulse Ox 07/14/21 20:00 98.2 F 75 18 148/88 H 96 07/14/21 18:45 80 18 152/80 H 07/14/21 16:45 80 18 148/86 H 07/14/21 14:45 98.4 F 80 18 155/89 H 07/14/21 12:30 98.2 F 90 18 130/78 07/14/21 08:30 80 18 140/80 PG Care Time/CCT Total # of Minutes Spent Total Time Spent with Patient: Total time spent is greater than 50% in coordination of care (as documented) at patient's floor/unit and/or counseling patient: Coding Level of Care Code None Diagnoses S/P section Z98.891 Preeclampsia O14.90 Gestational diabetes O24.419
[2021-07-14] MEDS ORDERED: NIFEdipine EXTENDED REL 30 MG TABCR PO SCH (23:55)
--- NOTE | 2021-07-16 10:23 | Discharge Summary (DS) ---
DATE OF ADMISSION: 07/11/2021 DATE OF DISCHARGE: 07/14/2021 ADMIT DIAGNOSES: 1. at 36+ weeks. 2. Preeclampsia with severe features. 3. History of previous section x2. DISCHARGE DIAGNOSES: 1. at 36+ weeks. 2. Preeclampsia with severe features. 3. History of previous section x2. PROCEDURES: 1. Blood pressure monitoring and blood pressure medication administration. 2. Magnesium sulfate prophylaxis. 3. Repeat section with bilateral modified [place] tubal ligation. HISTORY: This patient is a 36-year-old female, 3, para 2-0-0-2, with x2, who prese nts to labor and delivery from the office for elevated blood pressures. She has been in the office o r labor and delivery every day this week because of elevated blood pressures. She was in the office again today with blood pressures of 150s/100s. I first saw the patient on Thursday with elevated blo od pressures and headache. Blood pressures were elevated, but not in severe range. Labs have always been normal. She had been seen almost daily and pressures, which she notes at home have been in the 160s/100s, but has never been severe on evaluation here. She has received 2 doses of steroids. She had a 24-hour urine less than 300 when she had a protein-creatinine ratio of 0.3 on Thursday. She h ad a new +2 dip in the office today. However, here in labor and delivery, she dips negative. She co ntinues to have a headache that has never gone away. At times, she notes this headache spikes and is a bit worse. She notes blurry vision since Thursday. She currently denies right upper quadrant milo n, nausea, vomiting or increased swelling. Her pressures here in labor and delivery are significantl y elevated in the 200s/100s. For the rest of the patient's detailed history and physical, please see her history and physical. ASSESSMENT: This is a patient demonstrating severe level blood pressures at this point at 36 and 1/7 weeks. She has had 2 doses of steroids. The fetus is category 1. The plan is to proceed with rico bass, treat blood pressures with labetalol and start magnesium for seizure prophylaxis. HOSPITAL COURSE: The patient was admitted. She received 2 doses of IV labetalol and then was starte d on magnesium sulfate prophylaxis with 4 ____ bolus. She underwent a repeat lower transverse santiago an section without difficulty and a bilateral modified [place] tubal ligation. She had an estimated blood loss of 600 mL. She delivered a viable male in cephalic presentation with normal uterus, tubes, and ovaries bilaterally. The patient's postoperative course was complicated by persistent el evated blood pressures. She was kept on magnesium sulfate prophylaxis for 24 hours and was started o n p.o. labetalol shortly after delivery. This was increased to 400 mg p.o. b.i.d. and nifedipine 30 mg XL was added daily. She was able to void after the removal of her Borrero catheter, tolerated a reg ular diet, ambulated without difficulty and had her pain well controlled on oral pain medications. S he was discharged home on postoperative day #3 when her pressures were more reasonable in the 130s-15 0s/80s. Her is the hospitalist physician and is comfortable doing her blood pressure checks at home. They have a pediatric appointment the day following discharge and so could come to the [facility] for a blood pressure check. She will continue on labetalol 400 mg p.o. b.i.d. as well as nifedipi ne XL daily. Preeclampsia symptoms were reviewed with the patient and her , the physician, as well as blood pressures for which to call. It was discovered that her blood pressures when taken wi th the wall machine were found to be inaccurate and when taken with a manual blood pressure cuff were more reasonable. Postoperative H and H was 8.9 and 28.5. Job ID: [id number]
== END 2021-07-14 21:10 | disposition home or self-care (01) | DRG 785 ==
LOC: OPB 14:18 → 4S1 14:21 → 4S2 07-12 17:54